=== PATIENT | female | born 1960 | race Caucasian/White ===

== ENCOUNTER → 2016-08-15 | Outpatient (CLI) | payer BC, OTHER ==
[~2016-08-15] MED LIST: CYAN10005 PO; LEVO150T PO; SYN112 PO
[2016-08-15 13:25] LABS: ALT/SGPT 23 U/L (12-78); AST/SGOT 11 U/L (15-37); BLOOD UREA NITROGEN 17 mg/dl (7-18); CARBON DIOXIDE 27 mmol/L (21-32); CHLORIDE 109 mmol/L (98-107); CHOLESTEROL 236 mg/dl (0-200); CREATININE 0.72 mg/dl (0.60-1.20); GLUCOSE 104 mg/dl (70-99); POTASSIUM 4.3 mmol/L (3.5-5.1); SODIUM 142 mmol/L (136-145); TRIGLYCERIDES 95 mg/dl (0-150); VERY LOW DENSITY LIPOPROT CALC 19 mg/dl
[2016-08-15 13:26] LABS: CALCIUM 8.3 mg/dl (8.5-10.1)
[2016-08-15 13:28] LABS: ALB/GLOB RATIO 1.2 (0.9-2); ALKALINE PHOSPHATASE 62 U/L (45-117); CHOLESTEROL/HDL RATIO 4.3; HDL CHOLESTEROL 55 mg/dl; LDL CHOLESTEROL CALCULATED 162 mg/dl
[2016-08-15 13:31] LABS: ESTIMATED AVERAGE GLUCOSE 117 mg/dl; HA1C FLAG Normal (Normal)
[2016-08-15 13:45] LABS: THYROID STIMULATING HORMONE 2.07 uIu/ml (0.300-4.500)
== END | disposition home or self-care (01) ==
LOC: C.LABMFLN 07:23
PROVIDERS: ATTEND Nurse Practitioner Family
DX: E03.9 Hypothyroidism, unspecified (principal); E05.00 Thyrotoxicosis with diffuse goiter without thyrotoxic crisis or storm; Z11.59 Encounter for screening for other viral diseases; Z13.220 Encounter for screening for lipoid disorders; E88.81 Metabolic syndrome and other insulin resistance

== ENCOUNTER → 2017-07-01 | Outpatient (CLI) | payer BC, OTHER ==
[~2017-07-01] MED LIST changes: -SYN112 PO
[2017-07-01 17:59] LABS: BASO % 0.7 %; BASO ABS # 0.04 K/uL (0-0.2); EOS % 2.9 %; EOS ABS # 0.18 K/uL (0-0.5); HEMATOCRIT 38.4 % (37-47); IG# 0.01 K/uL (0.00-0.02); LYMPH % 30.9 %; LYMPH ABS # 1.89 K/uL (1.2-3.4); MEAN CELL VOLUME 89.9 fL (80-100); MEAN CORPUSCULAR HEMOGLOBIN 30.4 pg (25-34); MEAN CORPUSCULAR HGB CONC 33.9 g/dl (32-36); MEAN PLATELET VOLUME 8.9 fL (7.4-10.4); MONO ABS # 0.55 K/uL (0.11-0.59); NEUT % 56.3 %; NEUT ABS # 3.45 K/uL (1.4-6.5); PLATELET COUNT 420 K/uL (130-400); RED CELL DISTRIBUTION WIDTH SD 46.2 fL (36.4-46.3); WHITE BLOOD COUNT 6.12 K/uL (4.8-10.8)
[2017-07-01 18:02] LABS: ALBUMIN 3.5 gm/dl (3.4-5.0); ALT/SGPT 24 U/L (12-78); BLOOD UREA NITROGEN 18 mg/dl (7-18); CALCIUM 8.1 mg/dl (8.5-10.1); CARBON DIOXIDE 28 mmol/L (21-32); CHOLESTEROL 251 mg/dl (0-200); GLUCOSE 93 mg/dl (70-99); POTASSIUM 4.2 mmol/L (3.5-5.1); SODIUM 139 mmol/L (136-145)
[2017-07-01 18:12] LABS: ALKALINE PHOSPHATASE 57 U/L (45-117); AST/SGOT 14 U/L (15-37); LDL CHOLESTEROL CALCULATED 170 mg/dl; TOTAL PROTEIN 6.7 gm/dl (6.4-8.2)
[2017-07-02 08:30] LABS: HEMOGLOBIN A1C 5.7 % (4.5-5.6)
== END | disposition home or self-care (01) ==
LOC: C.LABMFLN 12:14
PROVIDERS: ATTEND Physician Assistant
DX: Z00.00 Encounter for general adult medical examination without abnormal findings (principal); R73.03 Prediabetes; E03.9 Hypothyroidism, unspecified

== ENCOUNTER → 2017-08-03 | Outpatient (CLI) | payer BC ==
[2017-08-03 13:31] LABS: T3 FREE 2.64 pg/ml (2.30-4.20)
== END | disposition home or self-care (01) ==
LOC: C.LABMFLN 10:15
PROVIDERS: ATTEND Chiropractor
DX: M79.1 Myalgia (principal)